=== PATIENT | male | born 1965 | race African-American/Black ===

== ENCOUNTER 2020-10-10 09:23 | Inpatient (IN) ==
[2020-10-10] MEDS ORDERED: ONDANSETRON 4 MG/2 ML VIAL IV STA (11:05)
[2020-10-10] MEDS ORDERED: SODIUM CHLORIDE 0.9% 1,000 ML IV STA (11:05)
[2020-10-10] MEDS ORDERED: MORPHINE 4 MG/1 ML VIAL IV ONE (11:05)
[2020-10-10 11:16] LABS: Basophils # 0.1 10*3/uL (0.0-0.2); Basophils % 0.5 % (0.0-0.8); Eosinophils # 0.2 10*3/uL (0.0-0.87); Hematocrit 44.3 VOL% (42.0-52.0); Immature Granulocytes % 0.7 %; Immature Granulocytes Absolute 0.11 #; Lymphocytes # 4.8 10*3/uL (1.4-4.0); Lymphocytes % 28.5 % (21.2-54.2); Mean Corpuscular HGB Conc 33.9 GM/DL (32-36); Mean Corpuscular Volume 89.7 FL (87-102); Mean Platelet Volume 11.5 FL (9.6-12.0); Monocytes % 4.1 % (1.7-12.7); Neutrophils % 65.2 % (38.7-73.9); Platelet Count 270 T/CUMM (130-400); Red Blood Count 4.94 MC/CUMM (3.8-5.5); Red Cell Distribution Width 12.7 % (9.3-17.3); White Blood Count 16.9 T/CUMM (4-12)
[2020-10-10 11:22] LABS: PT Patient Result 10.9 SECS (9.8-11.9); Partial Thromboplastin Time 26.5 SECS (23.9-33.8)
[2020-10-10 11:36] LABS: Bilirubin,Urine Negative (Negative); Blood, Urine Large mg/dL (Negative); Glucose,Urine (UA) 50 mg/dL (Negative); Ketones,Urine Negative (Negative); Mucus,Urine Occasional /LPF (Occasional); Nitrite,Urine Negative (Negative); Protein,Urine 30 MG/DL; RBC,Urine 4 /HPF (0-4); Squamous Epithelial Cell,Urine Occasional /HPF (0-10); Urine Appearance CLEAR (Clear); Urine Color Yellow (Yellow); Urine Urobilinogen < 2.0 EU/DL (0.2-1.0); WBC,Urine 1 /HPF (0-6)
[2020-10-10 11:38] LABS: Albumin 3.8 G/DL (3.4-5.0); Bilirubin,Total 0.5 MG/DL (0.2-1.0); Calcium 9.3 MG/DL (8.5-10.1); Osmolality,Calculated 278.7 MOS/KG (273-304); Potassium 3.7 MMOL/L (3.5-5.1); Total Protein 7.7 G/DL (6.4-8.3)
[2020-10-10 11:49] LABS: Barbiturates Screen,Urine Negative (Negative); Benzodiazepines Screen,Urine Negative (Negative); Cannabinoid Screen,Urine Negative (Negative); Opiate Screen,Urine Negative (Negative); Phencyclidine Screen,Urine Negative (Negative)
[2020-10-10] MEDS ORDERED: BISACODYL 5 MG TABLET PO PRN (11:51)
[2020-10-10] MEDS ORDERED: HYDROmorphone 2 MG/1 ML VIAL IV PRN (11:51)
[2020-10-10] MEDS ORDERED: ONDANSETRON 4 MG/2 ML VIAL IV PRN (11:51)
[2020-10-10] MEDS ORDERED: ACETAMINOPHEN 325 MG TABLET PO PRN (11:51)
[2020-10-10] MEDS ORDERED: ALBUTEROL/IPRATROPIUM 3 ML NEB RESP TX PRN (11:51)
[2020-10-10] MEDS: LACTATED RINGERS 1,000 ML IV SCH (12:26)
[2020-10-10] MEDS: ALBUTEROL/IPRATROPIUM 3 ML NEB RESP TX SCH ×2 (13:00→19:06)
[2020-10-10] MEDS: HYDROmorphone 2 MG/1 ML VIAL IV PRN (15:15)
[2020-10-10] MEDS ORDERED: KETOROLAC 30 MG/1 ML VIAL IV STA (15:16)
[2020-10-10] MEDS: cefOXitin 2,000 MG in SYRINGE 1 EACH IV SCH ×2 (16:30→21:35)
[2020-10-10 17:24] LABS: Hematocrit 41.8 VOL% (42.0-52.0); Hemoglobin 14.2 GM/DL (14.0-18.0)
[2020-10-10 19:40] LABS: Hematocrit 42.1 VOL% (42.0-52.0); Hemoglobin 14.1 GM/DL (14.0-18.0)
[2020-10-10] MEDS: KETOROLAC 15 MG/1 ML VIAL IV SCH (20:30)
[2020-10-10 23:29] LABS: Hemoglobin 13.2 GM/DL (14.0-18.0)
[2020-10-11] MEDS: ALBUTEROL/IPRATROPIUM 3 ML NEB RESP TX SCH ×4 (00:40→18:08)
[2020-10-11] MEDS: LACTATED RINGERS 1,000 ML IV SCH ×3 (01:52→16:29)
[2020-10-11] MEDS: KETOROLAC 15 MG/1 ML VIAL IV SCH ×4 (04:52→20:30)
[2020-10-11] MEDS: cefOXitin 2,000 MG in SYRINGE 1 EACH IV SCH ×3 (04:52→16:25)
[2020-10-11 05:13] LABS: Bilirubin,Total 0.5 MG/DL (0.2-1.0); Calcium 8.4 MG/DL (8.5-10.1); Osmolality,Calculated 282.4 MOS/KG (273-304); Potassium 3.9 MMOL/L (3.5-5.1); Total Protein 6.5 G/DL (6.4-8.3)
[2020-10-11 06:19] LABS: Basophils % 0.4 % (0.0-0.8); Eosinophils % 0.3 % (0.00-10.9); Hematocrit 36.5 VOL% (42.0-52.0); Hemoglobin 12.3 GM/DL (14.0-18.0); Immature Granulocytes % 0.3 %; Immature Granulocytes Absolute 0.03 #; Lymphocytes # 1.9 10*3/uL (1.4-4.0); Lymphocytes % 19.6 % (21.2-54.2); Mean Corpuscular HGB Conc 33.7 GM/DL (32-36); Mean Corpuscular Volume 91.9 FL (87-102); Mean Platelet Volume 11.5 FL (9.6-12.0); Monocytes % 10.4 % (1.7-12.7); Platelet Count 192 T/CUMM (130-400); Red Blood Count 3.97 MC/CUMM (3.8-5.5); Red Cell Distribution Width 13.1 % (9.3-17.3); White Blood Count 9.9 T/CUMM (4-12)
[2020-10-11 07:52] VITALS: BP 111/47
[2020-10-11 08:37] LABS: Hematocrit 37.8 VOL% (42.0-52.0); Hemoglobin 12.6 GM/DL (14.0-18.0)
[2020-10-11] MEDS: LOSARTAN/HCTZ 50-12.5 MG TABLET PO SCH (08:39)
[2020-10-11] MEDS: PANTOPRAZOLE 40 MG TABLET PO SCH (08:44)
[2020-10-11] MEDS: HYDROmorphone 2 MG/1 ML VIAL IV PRN ×2 (12:54→21:55)
[2020-10-12] MEDS: LACTATED RINGERS 1,000 ML IV SCH ×2 (01:07→09:17)
[2020-10-12] MEDS: ALBUTEROL/IPRATROPIUM 3 ML NEB RESP TX SCH ×2 (01:50→07:30)
[2020-10-12] MEDS: KETOROLAC 15 MG/1 ML VIAL IV SCH ×3 (04:20→16:06)
[2020-10-12 04:25] LABS: Basophils % 0.3 % (0.0-0.8); Eosinophils # 0.1 10*3/uL (0.0-0.87); Eosinophils % 0.8 % (0.00-10.9); Immature Granulocytes % 0.4 %; Immature Granulocytes Absolute 0.05 #; Lymphocytes # 1.8 10*3/uL (1.4-4.0); Lymphocytes % 15.5 % (21.2-54.2); Mean Corpuscular HGB Conc 33.3 GM/DL (32-36); Mean Corpuscular Volume 92.1 FL (87-102); Mean Platelet Volume 10.8 FL (9.6-12.0); Monocytes % 6.3 % (1.7-12.7); Neutrophils % 76.7 % (38.7-73.9); Platelet Count 163 T/CUMM (130-400); Red Blood Count 3.91 MC/CUMM (3.8-5.5); White Blood Count 11.4 T/CUMM (4-12)
[2020-10-12 05:08] LABS: Calcium 8.7 MG/DL (8.5-10.1); Osmolality,Calculated 276.7 MOS/KG (273-304)
[2020-10-12] MEDS: LOSARTAN/HCTZ 50-12.5 MG TABLET PO SCH (09:30)
[2020-10-12] MEDS: PANTOPRAZOLE 40 MG TABLET PO SCH (09:30)
== END 2020-10-12 17:30 | disposition home or self-care (01) | DRG 964 ==
LOC: N.ED 09:23 → N.ICU 15:41
PROVIDERS: ADMIT Surgery; ATTEND Surgery

== ENCOUNTER 2020-10-20 10:57 | Inpatient (IN) ==
[2020-10-20 11:59] LABS: Basophils # 0.1 10*3/uL (0.0-0.2); Basophils % 0.3 % (0.0-0.8); Eosinophils # 0.4 10*3/uL (0.0-0.87); Eosinophils % 2.4 % (0.00-10.9); Hematocrit 44.8 VOL% (42.0-52.0); Hemoglobin 14.8 GM/DL (14.0-18.0); Immature Granulocytes % 1.2 %; Immature Granulocytes Absolute 0.21 #; Lymphocytes # 3.4 10*3/uL (1.4-4.0); Lymphocytes % 19.8 % (21.2-54.2); Mean Corpuscular Volume 92.8 FL (87-102); Mean Platelet Volume 9.9 FL (9.6-12.0); Monocytes % 4.4 % (1.7-12.7); NRBC # 0.11 10*3/uL; Neutrophils % 71.9 % (38.7-73.9); Platelet Count 286 T/CUMM (130-400); Red Blood Count 4.83 MC/CUMM (3.8-5.5); Red Cell Distribution Width 14.5 % (9.3-17.3); White Blood Count 17.2 T/CUMM (4-12)
[2020-10-20 12:08] LABS: INR 1.1; PT Patient Result 11.9 SECS (9.8-11.9)
[2020-10-20 12:24] LABS: Alanine Aminotransferase 33 U/L (16-61); Albumin 3.9 G/DL (3.4-5.0); Alkaline Phosphatase 86 U/L (45-117); Aspartate Amino Transferase 29 U/L (0-37); Blood Urea Nitrogen 13 MG/DL (7-18); Calcium 9.5 MG/DL (8.5-10.1); Carbon Dioxide 24 MMOL/L (21-32); Estimated Glom Filtration Rate 103 ML/MIN; Glucose 146 MG/DL (74-106); Osmolality,Calculated 279.5 MOS/KG (273-304); Potassium 3.4 MMOL/L (3.5-5.1); Sodium 139 MMOL/L (136-145); Total Protein 8.4 G/DL (6.4-8.3)
[2020-10-20 12:25] LABS: Troponin I 0.196 NG/ML (0.00-0.045)
[2020-10-20 12:34] LABS: Eosinophils 2 % (0-10); Lymphocytes 18 % (20-55); Platelet Estimate Normal; Polychromasia 1+; Segmented Neutrophils 74 % (50-85); Total Cells Counted 100
[2020-10-20 12:35] LABS: Atypical Lymphocytes Few
[2020-10-20] MEDS ORDERED: LIDOCAINE 1% 20 ML VIAL ONE (15:59)
[2020-10-20] MEDS ORDERED: HEPARIN/NACL 0.9% 2 UNITS/ML 500 ML IV ONE ×3 (15:59→17:50)
[2020-10-20] MEDS ORDERED: HYDROmorphone 2 MG/1 ML VIAL IV PRN (16:00)
[2020-10-20] MEDS ORDERED: ACETAMINOPHEN 325 MG TABLET PO PRN (16:00)
[2020-10-20] MEDS ORDERED: ONDANSETRON 4 MG/2 ML VIAL IV PRN (16:00)
[2020-10-20] MEDS ORDERED: MIDAZOLAM 2 MG/2 ML VIAL ONE (16:28)
[2020-10-20] MEDS ORDERED: HYDROmorphone 2 MG/1 ML VIAL ONE (16:28)
[2020-10-20] MEDS: LACTATED RINGERS 1,000 ML IV SCH (19:17)
[2020-10-20] MEDS: CETIRIZINE 10 MG TABLET PO SCH (19:54)
[2020-10-21] MEDS: LACTATED RINGERS 1,000 ML IV SCH ×3 (03:01→17:04)
[2020-10-21 06:26] LABS: Basophils # 0.1 10*3/uL (0.0-0.2); Basophils % 0.4 % (0.0-0.8); Eosinophils # 0.7 10*3/uL (0.0-0.87); Eosinophils % 4.9 % (0.00-10.9); Hematocrit 37.8 VOL% (42.0-52.0); Hemoglobin 12.3 GM/DL (14.0-18.0); Immature Granulocytes % 0.4 %; Immature Granulocytes Absolute 0.06 #; Lymphocytes # 2.4 10*3/uL (1.4-4.0); Lymphocytes % 17.6 % (21.2-54.2); Mean Corpuscular HGB Conc 32.5 GM/DL (32-36); Mean Corpuscular Volume 94.7 FL (87-102); Mean Platelet Volume 10.1 FL (9.6-12.0); Monocytes % 4.7 % (1.7-12.7); NRBC # 0.05 10*3/uL; Platelet Count 223 T/CUMM (130-400); Red Blood Count 3.99 MC/CUMM (3.8-5.5); Red Cell Distribution Width 14.2 % (9.3-17.3); White Blood Count 13.8 T/CUMM (4-12)
[2020-10-21 06:34] LABS: Calcium 8.9 MG/DL (8.5-10.1); Osmolality,Calculated 279.5 MOS/KG (273-304); Potassium 3.5 MMOL/L (3.5-5.1)
[2020-10-21] MEDS: CETIRIZINE 10 MG TABLET PO SCH (08:15)
[2020-10-21] MEDS: PANTOPRAZOLE 40 MG TABLET PO SCH (08:15)
[2020-10-21] MEDS ORDERED: HEPARIN 5,000 UNIT/1 ML VIAL IV ONE (08:43)
[2020-10-21] MEDS ORDERED: ENOXAPARIN 40 MG/0.4 ML SYRINGE SUBCUT SCH (09:00)
[2020-10-21] MEDS: HEPARIN DRIP 25,000 UNITS/500 ML PREMIX IV SCH (10:23)
[2020-10-21] MEDS ORDERED: MORPHINE 4 MG/1 ML VIAL IV ONE (11:42)
[2020-10-21] MEDS ORDERED: SODIUM CHLORIDE 0.65% NASAL SPRAY 45 ML BOTTLE BOTH NARES PRN (22:39)
[2020-10-22] MEDS: LACTATED RINGERS 1,000 ML IV SCH ×2 (00:55→10:32)
[2020-10-22] MEDS: HEPARIN DRIP 25,000 UNITS/500 ML PREMIX IV SCH ×2 (00:57→12:38)
[2020-10-22 06:13] LABS: Basophils % 0.3 % (0.0-0.8); Eosinophils # 0.5 10*3/uL (0.0-0.87); Eosinophils % 3.5 % (0.00-10.9); Hematocrit 37.9 VOL% (42.0-52.0); Hemoglobin 12.1 GM/DL (14.0-18.0); Immature Granulocytes % 0.5 %; Immature Granulocytes Absolute 0.08 #; Lymphocytes # 3.2 10*3/uL (1.4-4.0); Lymphocytes % 21.5 % (21.2-54.2); Mean Corpuscular HGB Conc 31.9 GM/DL (32-36); Mean Corpuscular Volume 96.2 FL (87-102); Mean Platelet Volume 10.5 FL (9.6-12.0); Monocytes % 4.4 % (1.7-12.7); NRBC # 0.04 10*3/uL; Neutrophils % 69.8 % (38.7-73.9); Platelet Count 203 T/CUMM (130-400); Red Blood Count 3.94 MC/CUMM (3.8-5.5); White Blood Count 14.8 T/CUMM (4-12)
[2020-10-22 06:37] LABS: Albumin 2.8 G/DL (3.4-5.0); Calcium 8.5 MG/DL (8.5-10.1); Osmolality,Calculated 281.4 MOS/KG (273-304); Potassium 3.3 MMOL/L (3.5-5.1); Total Protein 6.6 G/DL (6.4-8.3)
[2020-10-22 06:51] LABS: Platelet Estimate Normal
[2020-10-22 06:52] LABS: Anisocytosis 2+; Macrocytosis Slight
[2020-10-22] MEDS ORDERED: TELMISARTAN HYDROCHLOROTHIAZID PO SCH (09:00)
[2020-10-22] MEDS ORDERED: POTASSIUM CHLORIDE 20 MEQ TABLET PO ONE (09:30)
[2020-10-22] MEDS: hydroCHLOROthiazide 12.5 MG CAPSULE PO SCH (10:30)
[2020-10-22] MEDS: CETIRIZINE 10 MG TABLET PO SCH (10:30)
[2020-10-22] MEDS: PANTOPRAZOLE 40 MG TABLET PO SCH (10:30)
[2020-10-22] MEDS: LOSARTAN 50 MG TABLET PO SCH (10:31)
[2020-10-22] MEDS: APIXABAN 5 MG TABLET PO SCH ×2 (11:53→20:25)
[2020-10-22] MEDS: POTASSIUM CHLORIDE 10 MEQ TABLET PO SCH (11:59)
[2020-10-22] MEDS ORDERED: MAGNESIUM HYDROXIDE SUSP 30 ML UDCUP PO ONE (12:00)
[2020-10-22] MEDS: BISACODYL 5 MG TABLET PO SCH (20:25)
[2020-10-23 06:48] LABS: Basophils # 0.1 10*3/uL (0.0-0.2); Basophils % 0.5 % (0.0-0.8); Eosinophils # 0.5 10*3/uL (0.0-0.87); Eosinophils % 3.6 % (0.00-10.9); Hematocrit 37.6 VOL% (42.0-52.0); Hemoglobin 12.6 GM/DL (14.0-18.0); Immature Granulocytes % 0.5 %; Immature Granulocytes Absolute 0.06 #; Lymphocytes # 2.1 10*3/uL (1.4-4.0); Lymphocytes % 16.2 % (21.2-54.2); Mean Corpuscular HGB Conc 33.5 GM/DL (32-36); Mean Corpuscular Volume 93.1 FL (87-102); Mean Platelet Volume 10.4 FL (9.6-12.0); Monocytes % 3.9 % (1.7-12.7); Neutrophils % 75.3 % (38.7-73.9); Platelet Count 200 T/CUMM (130-400); Red Blood Count 4.04 MC/CUMM (3.8-5.5); Red Cell Distribution Width 14.2 % (9.3-17.3); White Blood Count 12.9 T/CUMM (4-12)
[2020-10-23 07:08] LABS: Calcium 9.1 MG/DL (8.5-10.1); Osmolality,Calculated 275.7 MOS/KG (273-304)
[2020-10-23] MEDS: hydroCHLOROthiazide 12.5 MG CAPSULE PO SCH (09:40)
[2020-10-23] MEDS: POTASSIUM CHLORIDE 10 MEQ TABLET PO SCH (09:40)
[2020-10-23] MEDS: CETIRIZINE 10 MG TABLET PO SCH (09:40)
[2020-10-23] MEDS: LOSARTAN 50 MG TABLET PO SCH (09:41)
[2020-10-23] MEDS: APIXABAN 5 MG TABLET PO SCH ×2 (09:41→21:11)
[2020-10-23] MEDS: PANTOPRAZOLE 40 MG TABLET PO SCH (09:41)
[2020-10-23] MEDS: BISACODYL 5 MG TABLET PO SCH (21:11)
[2020-10-24 06:17] LABS: Basophils # 0.1 10*3/uL (0.0-0.2); Basophils % 0.4 % (0.0-0.8); Eosinophils # 0.5 10*3/uL (0.0-0.87); Eosinophils % 3.3 % (0.00-10.9); Hematocrit 37.5 VOL% (42.0-52.0); Hemoglobin 12.9 GM/DL (14.0-18.0); Immature Granulocytes % 0.6 %; Immature Granulocytes Absolute 0.09 #; Lymphocytes # 2.5 10*3/uL (1.4-4.0); Lymphocytes % 16.8 % (21.2-54.2); Mean Corpuscular HGB Conc 34.4 GM/DL (32-36); Mean Platelet Volume 10.7 FL (9.6-12.0); Monocytes % 4.7 % (1.7-12.7); NRBC # 0.02 10*3/uL; Neutrophils % 74.2 % (38.7-73.9); Platelet Count 209 T/CUMM (130-400); Red Blood Count 4.12 MC/CUMM (3.8-5.5); Red Cell Distribution Width 14.2 % (9.3-17.3)
[2020-10-24] MEDS: POTASSIUM CHLORIDE 10 MEQ TABLET PO SCH (11:00)
[2020-10-24] MEDS: hydroCHLOROthiazide 12.5 MG CAPSULE PO SCH (11:00)
[2020-10-24] MEDS: PANTOPRAZOLE 40 MG TABLET PO SCH (11:01)
[2020-10-24] MEDS: APIXABAN 5 MG TABLET PO SCH ×2 (11:01→21:33)
[2020-10-24] MEDS: CETIRIZINE 10 MG TABLET PO SCH (11:01)
[2020-10-24] MEDS: LOSARTAN 50 MG TABLET PO SCH (11:05)
[2020-10-24] MEDS: MONTELUKAST 10 MG TABLET PO SCH (11:06)
[2020-10-24] MEDS: ALBUTEROL/IPRATROPIUM 3 ML NEB RESP TX SCH ×2 (13:20→19:09)
[2020-10-24] MEDS: BISACODYL 5 MG TABLET PO SCH (21:34)
[2020-10-25] MEDS: ALBUTEROL/IPRATROPIUM 3 ML NEB RESP TX SCH ×3 (00:37→15:26)
[2020-10-25 06:51] LABS: Basophils # 0.1 10*3/uL (0.0-0.2); Basophils % 0.5 % (0.0-0.8); Eosinophils # 0.5 10*3/uL (0.0-0.87); Hematocrit 39.1 VOL% (42.0-52.0); Hemoglobin 12.8 GM/DL (14.0-18.0); Immature Granulocytes % 0.7 %; Immature Granulocytes Absolute 0.11 #; Lymphocytes % 20.1 % (21.2-54.2); Mean Corpuscular HGB Conc 32.7 GM/DL (32-36); Mean Corpuscular Volume 93.5 FL (87-102); Mean Platelet Volume 10.8 FL (9.6-12.0); Monocytes % 4.7 % (1.7-12.7); NRBC # 0.04 10*3/uL; Platelet Count 230 T/CUMM (130-400); Red Blood Count 4.18 MC/CUMM (3.8-5.5); Red Cell Distribution Width 14.2 % (9.3-17.3)
[2020-10-25 07:12] LABS: Hypochromasia Slight; Microcytosis 1+; Platelet Estimate Normal
[2020-10-25] MEDS: POTASSIUM CHLORIDE 10 MEQ TABLET PO SCH (10:05)
[2020-10-25] MEDS: MONTELUKAST 10 MG TABLET PO SCH (10:06)
[2020-10-25] MEDS: APIXABAN 5 MG TABLET PO SCH (10:06)
[2020-10-25] MEDS: PANTOPRAZOLE 40 MG TABLET PO SCH (10:06)
[2020-10-25] MEDS: LOSARTAN 50 MG TABLET PO SCH (10:06)
[2020-10-25] MEDS: hydroCHLOROthiazide 12.5 MG CAPSULE PO SCH (10:06)
[2020-10-25] MEDS: CETIRIZINE 10 MG TABLET PO SCH (10:06)
[2020-10-25 16:24] VITALS: BP 182/68
== END 2020-10-25 18:20 | disposition home or self-care (01) | DRG 163 ==
LOC: N.ED 10:57 → N.ICU 16:00 → N.ED 16:12 → N.3E 10-21 17:30
PROVIDERS: ADMIT Student in an Organized Health Care Education/Training Program; ATTEND Student in an Organized Health Care Education/Training Program